=== PATIENT | male | born 1975 | race Caucasian/White ===

== ENCOUNTER 2021-08-06 15:01 | Emergency (ER) | payer OTHER ==
[~2021-08-06] VITALS: Ht 172.7 cm; Wt 68.6 kg
--- NOTE | 2021-08-06 15:12 | PHYS DOC ---
General Adult EDM: Chief Complaint: CHEST PAIN HPI: HPI: Patient is a 46-year-old male who presents to the emergency department for left- sided chest pain that started 15 minutes ago while at work. Patient rates his pain 6 out of 10. He describes it as a pressure. It does not radiate. No alleviating or aggravating factors. No treatment prior to arrival. Patient has a history of hypertension, no family history of heart disease or sudden cardiac , he is a current smoker. Patient is reporting shortness of breath and lightheadedness. He denies any nausea or vomiting. Review of Systems: Review of Systems: 14 body systems of the review of systems have been reviewed. See HPI for pertinent positive and negative responses, otherwise all other systems are negative, nonpertinent or noncontributory Physical Exam: PE: Constitutional: Well developed, well nourished, no acute distress, non-toxic appearance. [] HENT: Normocephalic, atraumatic, bilateral external ears normal, oropharynx moist, no oral exudates, nose normal. [] Eyes: PERRL, EOMI, conjunctiva normal, no discharge. [] Neck: Normal range of motion, no stridor Cardiovascular:Heart rate regular rhythm, no murmur, left-sided chest pain reproducible [] Lungs & Thorax: Bilateral breath sounds clear to auscultation [] Abdomen: Bowel sounds normal, soft, no tenderness, no masses, no pulsatile m asses. [] Skin: Warm, dry, no erythema, no rash. [] Back: Normal range of motion Extremities: No tenderness, no cyanosis, no clubbing, ROM intact, no edema. [] Neurologic: Alert and oriented X 3, normal motor function, normal sensory function, no focal deficits noted. [] Psychologic: Affect normal, judgement normal, mood normal. [] Current Patient Data: Labs: Laboratory Tests Test 08/06/21 15:32 White Blood Count 8.1 x10^3/uL Red Blood Count 4.70 x10^6/uL Hemoglobin 14.5 g/dL Hematocrit 41.8 % Mean Corpuscular Volume 89 fL Mean Corpuscular Hemoglobin 31 pg Mean Corpuscular Hemoglobin Concent 35 g/dL Red Cell Distribution Width 13.1 % Platelet Count 344 x10^3/uL Neutrophils (%) (Auto) 71 % Lymphocytes (%) (Auto) 20 % Monocytes (%) (Auto) 7 % Eosinophils (%) (Auto) 2 % Basophils (%) (Auto) 1 % Neutrophils # (Auto) 5.7 x10^3uL Lymphocytes # (Auto) 1.6 x10^3/uL Monocytes # (Auto) 0.6 x10^3/uL Eosinophils # (Auto) 0.1 x10^3/uL Basophils # (Auto) 0.1 x10^3/uL Sodium Level 137 mmol/L Potassium Level 3.3 mmol/L Chloride Level 100 mmol/L Carbon Dioxide Level 25 mmol/L Anion Gap 12 Blood Urea Nitrogen 9 mg/dL Creatinine 1.0 mg/dL Estimated GFR (Cockcroft-Gault) 80.1 BUN/Creatinine Ratio 9 Glucose Level 80 mg/dL Calcium Level 9.4 mg/dL Total Bilirubin 0.6 mg/dL Aspartate Amino Transf (AST/SGOT) 19 U/L Alanine Aminotransferase (ALT/SGPT) 26 U/L Alkaline Phosphatase 90 U/L Troponin I Quantitative < 0.017 ng/mL Total Protein 7.5 g/dL Albumin 4.3 g/dL Albumin/Globulin Ratio 1.3 Current Medications Medications (Trade) Dose Ordered Sig/Shiva Route PRN Reason Start Time Stop Time Status Last Admin Dose Admin Aspirin (Jacque Aspirin) 325 mg 1X ONCE PO 08/06/21 15:15 08/06/21 15:24 DC 08/06/21 15:35 Sodium Chloride 1,000 ml @ 1,000 mls/hr 1X ONCE IV 08/06/21 15:15 08/06/21 16:14 DC 08/06/21 15:35 Fentanyl Citrate (Fentanyl 2ml Vial) 50 mcg 1X ONCE IVP 08/06/21 15:15 08/06/21 15:24 DC 08/06/21 15:36 EKG: EKG: EKG performed by ER staff at 1501 shows sinus rhythm with a heart rate of 85, QTC of 422, no STEMI read by Dr. Collins at 1505 P EKG performed by ER staff at 1626 shows sinus rhythm at a rate of 66, no changes compared to previous EKG, no STEMI read by Dr. Collins at 1633 Radiology/Procedures: Radiology/Procedures: []PROCEDURE: PORTABLE CHEST 1V Single view of the chest. 08/06/2021 3:13 PM Indication: Reason: CHEST PAIN / Spl. Instructions: / History: Comparison: None Findings: There is no focal consolidation. There is no pleural effusion or pneumothorax. The cardiomediastinal silhouette and pulmonary vasculature are within normal limits. No acute osseous abnormalities are seen. Impression: No evidence of acute cardiopulmonary process. Electronically signed by: Ney Jacome MD (08/06/2021 3:25 PM) [id number] DICTATED AND SIGNED BY: NEY JACOME MD DATE: 08/06/21 1524 CC: TORO RUBI APRN; ALISA LY ~MTH0 0 Heart Score: C/O Chest Pain: Yes HEART Score for Chest Pain: HEART Score for Chest Pain Response (Comments) Value History Slighlty/Non-Suspicious 0 ECG Nonspecific Repolarizatio 1 Age >45 - < 65 1 Risk Factors 1 or 2 Risk Factors 1 Troponin < Normal Limit 0 Total 3 Risk Factors: Risk Factors: DM, Current or recent (<one month) smoker, HTN, HLP, family history of CAD, obesity. Risk Scores: Score 0 - 3: 2.5% MACE over next 6 weeks - Discharge Home Score 4 - 6: 20.3% MACE over next 6 weeks - Admit for Clinical Observation Score 7 - 10: 72.7% MACE over next 6 weeks - Early Invasive Strategies Course & Med Decision Making: Course & Med Decision Making Pertinent Labs and Imaging studies reviewed. (See chart for details) Patient presents to the emergency department for left-sided chest pain. Work-up in the ER consisted of blood work, EKG, chest x-ray. Patient treated with IV fluids, pain medication and aspirin. Patient CBC unremarkable. He was noted to have hypokalemia and this is replaced in the emergency department. Negative troponin. Patient had serial EKGs performed that were negative for stemi. Patient's heart score is 3. Patient's primary care provider is Dr. Mosley. Upon reevaluation of patient, patient reports that his chest pain has resolved. Patient advised to follow-up with his primary care provider soon as possible. Patient's vital signs are stable he is in no acute distress at this time. I discussed with patient all findings and diagnostic testing as well as the need to follow-up with PCP for further evaluation and treatment or return to the ER if any new or worsening symptoms. Strict return precautions were also discussed at length. Patient voiced understanding and agreement with the plan. Patient is hemodynamically stable at the time of disposition. Dragon Disclaimer: Lucy Disclaimer: This electronic medical record was generated, in whole or in part, using a voice recognition dictation system. Departure Departure: Impression: Primary Impression: Chest pain Qualified Codes: R07.9 - Chest pain, unspecified Disposition: HOME / SELF CARE / HOMELESS Condition: GOOD Referrals: ALISA LY (PCP) Patient Instructions: Chest Pain (Nonspecific) Additional Instructions: You are seen in the emergency department today for chest pain. As we discussed, does not appear at this time while in the ER you are having acute coronary syndrome. You were noted to have a low potassium level, this was replaced with a supplement in the emergency department. Please ensure that you are eating potassium rich foods at home which include leafy green vegetables and bananas. I would advise you to follow-up with your primary care provider tomorrow regarding your ER visit. Please return to the emergency department if you develop chest pain, shortness of breath, palpitations, intractable nausea or vomiting, lightheadedness or dizziness, diaphoresis, these can be signs of ACS and require immediate evaluation. EMERGENCY DEPARTMENT GENERAL DISCHARGE INSTRUCTIONS Thank you for coming to [facility] (ED) today and trusting us with you care. We trust that you had a positivie experience in our Emergency Department. If you wish to speak to the department management, you may call the director at . YOUR FOLLOW UP INSTRUCTIONS ARE FOLLOWS: 1. Do you have a private Doctor? If you do not have a private doctor, please ask for a resource list of physicians or clinics that may be able to assist you with follow up care. 2. The Emergency Physician has interpreted your x-rays. The X-Ray specialist will also review them. If there is a change in the findings, you will be notified in 48 hours when at all possible. 3. A lab test or culture has been done, your results will be reviewed and you will be notified if you need a change in treatment. ADDITIONAL INSTRUCTIONS AND INFORMATION: 1. Your care today has been supervised by a physician who is specially trained in emergency care. Many problems require more than one evaluation for a complete diagnosis and treatment. We recommend that you schedule your follow up appointment as recommended to ensure complete treatment of you illness or injury. If you are unable to obtain follow up care and continue to have a problem, or if your condition worsens, we recommend that you return to the ED. 2. We are not able to safely determine your condition over the phone nor are we able to give sound medical advice over the phone. For these safety reasons, if you call for medical advice we will ask you to come to the ED for further evaluation. 3. If you have any questions regarding these discharge instructions please call the ED at [phone]. SAFETY INFORMATION: In the interest of safety, wellness, and injury prevention; we encourage you to wear your sealbelt, if you smoke; quite smoking, and we encourage family to use a protective helmet for bicycling and other sporting events that present an increased risk for head injury. IF YOUR SYMPTOMS WORSEN OR NEW SYMPTOMS DEVELOP, OR YOU HAVE CONCERNS ABOUT YOUR CONDITION; OR IF YOUR CONDITION WORSENS WHILE YOU ARE WAITING FOR YOUR FOLLOW UP APPOINTMENT; EITHER CONTACT YOUR PRIMARY CARE DOCTOR, THE PHYSICIAN WHOSE NAME AND NUMBER YOU WERE GIVEN, OR RETURN TO THE ED IMMEDIATELY. TORO RUBI APRN Aug 06, 2021 15:12
[2021-08-06] MEDS ORDERED: ASPIRIN 325 MG TABLET PO ONE (15:15)
[2021-08-06] MEDS ORDERED: IV NORMAL SALINE 1,000ML 1,000 ML IV ONE (15:15)
--- NOTE | 2021-08-06 15:25 | EKG ---
[address] [address] Test Date: 2021-08-06 Test Time: 15:01:27 Pat Name: KANWAL GR Department: Room: Gender: M Chief Jailer: STEFANI : 1975 Requested By: TORO RUBI Order Number: [id number] Reading MD: Gibson Bansal MD Measurements Intervals [place] Rate: 85 P: 71 MS: 148 QRS: 29 QRSD: 92 T: 57 QT: 350 QTc: 422 Interpretive Statements SINUS RHYTHM Electronically Signed On 08-07-2021 9:08:08 CDT by Gibson Bansal MD
--- NOTE | 2021-08-06 15:27 | RAD ---
Single view of the chest. 08/06/2021 3:13 PM Indication: Reason: CHEST PAIN / Spl. Instructions: / History: Comparison: None Findings: There is no focal consolidation. There is no pleural effusion or pneumothorax. The cardiome diastinal silhouette and pulmonary vasculature are within normal limits. No acute osseous abnormaliti es are seen. Impression: No evidence of acute cardiopulmonary process. Electronically signed by: Ney Jacome MD (08/06/2021 3:25 PM) [id number]
[2021-08-06 16:06] LABS: BASO # 0.1 x10^3/uL (0.0-0.2); BASO % 1 % (0-3); EOS # 0.1 x10^3/uL (0.0-0.7); EOS % 2 % (0-3); HEMATOCRIT 41.8 % (39.0-53.0); HEMOGLOBIN 14.5 g/dL (13.0-17.5); LYMPH # 1.6 x10^3/uL (1.0-4.8); LYMPH % 20 % (24-48); MEAN CORPUSCULAR HEMOGLOBIN 31 pg (25-35); MEAN CORPUSCULAR HGB CONC 35 g/dL (31-37); MEAN CORPUSCULAR VOLUME 89 fL (79-100); MONO # 0.6 x10^3/uL (0.0-1.1); MONO % 7 % (0-9); NEUT # 5.7 x10^3uL (1.8-7.7); NEUT % 71 % (31-73); PLATELET COUNT 344 x10^3/uL (140-400); RED CELL DISTRIBUTION WIDTH 13.1 % (11.5-14.5); WHITE BLOOD COUNT 8.1 x10^3/uL (4.0-11.0)
[2021-08-06 16:13] LABS: CALCIUM 9.4 mg/dL (8.5-10.1); GFR 80.1; POTASSIUM 3.3 mmol/L (3.5-5.1)
[2021-08-06 16:19] LABS: ALBUMIN 4.3 g/dL (3.4-5.0); ALBUMIN/GLOBULIN RATIO 1.3 (1.0-1.7); TOTAL BILIRUBIN 0.6 mg/dL (0.2-1.0); TOTAL PROTEIN 7.5 g/dL (6.4-8.2)
[2021-08-06] MEDS ORDERED: POTASSIUM CHLORIDE 20 MEQ TABLET.ER. PO ONE (16:45)
--- NOTE | 2021-08-06 16:58 | EKG ---
[address] [address] Test Date: 2021-08-06 Test Time: 16:26:40 Pat Name: KANWAL GR Department: Room: Gender: M Chief Optometry Service: STEFANI : 1975 Requested By: TORO RUBI Order Number: [id number] Reading MD: Gibson Bansal MD Measurements Intervals [place] Rate: 66 P: 58 [place]: 140 QRS: 58 QRSD: 94 T: 55 QT: 384 QTc: 404 Interpretive Statements SINUS RHYTHM Electronically Signed On 08-07-2021 9:01:02 CDT by Gibson Bansal MD
[2021-08-06 17:08] VITALS: BP 135/83
== END 2021-08-06 17:38 | disposition home or self-care (01) ==
LOC: ER 15:01
DX: R07.89 Other chest pain (principal); R06.02 Shortness of breath; R42 Dizziness and giddiness
CPT/HCPCS: 36415; 71045; 80053; 84484; 85025; 93005; 96361; 96374; 99285; J3010; J7030